=== PATIENT | male | born 1965 | race Caucasian/White ===

== ENCOUNTER 2019-07-18 08:01 | Day surgery (SDC) | payer OTHER ==
[~2019-07-18] VITALS: Ht 175.3 cm; Wt 115.4 kg
[~2019-07-18 08:01] MED LIST: ALBU90OI INH; ALBU90OI6 INH; ALBU90OI61 INH; HYDACE10B PO; Prednisone20 MG PO; SULTRIDS PO; Ventolin Soln3 ML INH
[2019-07-18] MEDS ORDERED: OSTERA TABLET1 EACH (08:23)
[2019-07-18] MEDS ORDERED: LISI5 (08:23)
== END 2019-07-18 10:18 | disposition home or self-care (01) ==
LOC: ORSCSDS 08:01
DX: Z12.11 Encounter for screening for malignant neoplasm of colon (principal); D12.2 Benign neoplasm of ascending colon; D12.3 Benign neoplasm of transverse colon; K64.8 Other hemorrhoids; E78.5 Hyperlipidemia, unspecified; K21.9 Gastro-esophageal reflux disease without esophagitis; J45.909 Unspecified asthma, uncomplicated; F31.9 Bipolar disorder, unspecified
CPT/HCPCS: 88305; J2405; J2704; J7120

== ENCOUNTER 2024-11-12 15:31 | Emergency (ER) | payer OTHER ==
[~2024-11-12] VITALS: Ht 175.3 cm; Wt 108.9 kg
[~2024-11-12 15:31] MED LIST changes: +LISI5; +OSTERA TABLET1 EACH
[2024-11-12 16:24] LABS: BASOPHILS ABSOLUTE AUTO 0.08 K/mm3 (0.00-0.23); BASOPHILS PERCENT AUTO 1 % (0-2); EOSINOPHILS ABSOLUTE AUTO 0.33 K/mm3 (0.00-0.68); EOSINOPHILS PERCENT AUTO 4 % (0-6); Hematocrit 51.1 % (37.0-53.0); Hemoglobin 17.5 g/dL (13.5-17.5); IMMATURE GRAN ABSOLUTE AUTO 0.02 K/mm3 (0.00-0.10); IMMATURE GRAN PERCENT AUTO 0 % (0-1); LYMPHOCYTES ABSOLUTE AUTO 1.54 K/mm3 (0.84-5.20); LYMPHOCYTES PERCENT AUTO 19 % (21-46); MONOCYTES ABSOLUTE AUTO 0.77 K/mm3 (0.16-1.47); MONOCYTES PERCENT AUTO 10 % (4-13); Mean Corpuscular HGB 30.9 pg (26.0-34.0); Mean Corpuscular HGB Conc 34.2 g/dL (31.5-36.5); Mean Corpuscular Volume 90 fL (80-100); Mean Platelet Volume 8.9 fL (9.1-12.4); NEUTROPHILS ABSOLUTE AUTO 5.34 K/mm3 (1.96-9.15); NEUTROPHILS PERCENT AUTO 66 % (41-73); Platelet Count 261 K/mm3 (150-400); RDW Standard Deviation 42.6 fL (35.1-46.3); Red Blood Cell Count 5.66 M/mm3 (4.30-5.90); White Blood Cell Count 8.08 K/mm3 (4.00-11.30)
[2024-11-12 16:43] LABS: Albumin, Blood 3.5 g/dL (3.4-5.0); Albumin/Globulin Ratio 0.9 (0.8-1.8); Bilirubin, Total 0.8 mg/dL (0.1-1.0); Bun/Creatinine Ratio 10.9 (12.0-20.0); Calcium, Blood 9.4 mg/dL (8.5-10.1); Creatinine, Blood 1.19 mg/dL (0.60-1.20); Globulin, Blood 3.9 g/dL (2.2-4.0); Potassium, Blood 4.1 mmol/L (3.5-5.5); Total Protein, Blood 7.4 g/dL (6.4-8.2)
[2024-11-12] MEDS ORDERED: CEPH500 PO (17:19)
[2024-11-12] MEDS ORDERED: CeFAZolin Sodium 2,000 MG in NS 100 ML IV ONE (17:20)
[2024-11-12 18:15] VITALS: BP 170/110
== END 2024-11-12 18:25 | disposition home or self-care (01) ==
LOC: ER 15:31
PROVIDERS: Student in an Organized Health Care Education/Training Program
DX: K42.9 Umbilical hernia without obstruction or gangrene (principal); J45.909 Unspecified asthma, uncomplicated; I10 Essential (primary) hypertension; Z79.899 Other long term (current) drug therapy
CPT/HCPCS: 74177; 80053; 85025; 96365-59; 99283-25; J0690; Q9967

== ENCOUNTER 2024-11-15 10:16 | Inpatient (IN) | payer OTHER ==
[2024-11-15] VITALS (9 sets, daily range): BP systolic 135–157; BP diastolic 89–112
[~2024-11-15] VITALS: Ht 172.7 cm; Wt 111.0 kg
[~2024-11-15 10:16] MED LIST changes: +CEPH500 PO; +CeFAZolin Sodium 2,000 MG in NS 100 ML IV SCH; +Lactated Ringer's 1,000 ML IV SCH
--- NOTE | 2024-11-15 11:38 | NUR ---
Ambulatory in Day Surgery. History, Chart, Medications and Allergies reviewed before start of procedure. Lungs clear T/O to Auscultation. PT REPORTS CHEWING TOBACCO AROUND 0930 THIS AM. ANESTHESIA NOTIFIED AND PER ANESTHESIA, DARNELL QUISPE TO PROCEED. PT REPORTS NOTHING ELSE BY MOUTH PRIOR TO PROCEDURE. Pre-Op teaching done. Pt verbalizes understanding. Patient States Post-Procedure ride home has been arranged. PT BELONGINGS PLACED [facility]ATH [facility] FOR SAFEKEEPING.
[2024-11-15] MEDS ORDERED: Metoclopramide HCl 5MG / ML 2ML Vial IV ONE (12:00)
[2024-11-15] MEDS ORDERED: Citric Acid/Sodium Citrate 30 ML BTL PO ONE (12:00)
[2024-11-15] MEDS ORDERED: Bupivacaine 0.5% HCl 5 MG/ML 30MLVIAL ONE (12:29)
[2024-11-15] MEDS ORDERED: Rocuronium Bromide 10 MG/ML 5ML Injection IV ONE (12:40)
[2024-11-15] MEDS ORDERED: FentaNYL Citrate 50 MCG/ML 2 ML Injection ONE (12:40)
[2024-11-15] MEDS ORDERED: propofoL 20 ML IV ONE (12:40)
[2024-11-15] MEDS ORDERED: Midazolam HCl 1MG / ML 2ML Vial ONE (12:40)
[2024-11-15] MEDS ORDERED: ePHEDrine Sulfate 50 MG/ML 1ML Injection ONE (13:22)
[2024-11-15] MEDS ORDERED: Vasopressin 20 UNITS/ML 1ML Vial ONE (13:31)
[2024-11-15] MEDS ORDERED: Dexamethasone Sod Phos 10 MG/ML 1ML VIAL ONE (14:08)
[2024-11-15] MEDS ORDERED: Ondansetron HCl 2 MG / ML 2ML Vial ONE (14:08)
[2024-11-15] MEDS ORDERED: Ketorolac Tromethamine 30mg Vial ONE (14:30)
[2024-11-15] MEDS ORDERED: Sugammadex Sodium 200 MG/2ML SDV (100 MG/ML) ONE (14:36)
[2024-11-15] MEDS ORDERED: HYDROmorphone HCl/Pf 1MG SYR ONE (14:38)
[2024-11-15] MEDS ORDERED: FentaNYL Citrate 50 MCG/ML 2 ML Injection IV PRN ×2 (14:45)
[2024-11-15] MEDS ORDERED: Albuterol 2.5 MG/3 ML VIAL INH PRN (14:45)
[2024-11-15] MEDS ORDERED: HydrALAZINE HCl 20 MG / ML 1ML Vial IV PRN (14:45)
[2024-11-15] MEDS ORDERED: Ondansetron HCl 2 MG / ML 2ML Vial IV PRN (14:50)
[2024-11-15] MEDS ORDERED: HYDROmorphone HCl/Pf 1MG SYR IV PRN ×2 (14:50)
[2024-11-15] MEDS ORDERED: OxyCODONE 5 mg/Acetamin 325 mg TABLET PO PRN (15:35)
[2024-11-15] MEDS ORDERED: Lactated Ringer's 1,000 ML IV SCH (15:40)
--- NOTE | 2024-11-15 17:14 | NUR ---
Discharge instructions reviewed with patient. Patient verbalizes understanding. Copy given to patient to take home. Discharged via wheelchair to private car for ride home. Ice pack provided.
[2024-11-16] MEDS ORDERED: Enoxaparin 40 MG/0.4 ML SYR SC SCH (09:00)
== END 2024-11-15 17:14 | disposition home or self-care (01) | DRG 355 ==
LOC: ORSCMMR 10:16 → ORD 10:16 → SURS 15:36
PROVIDERS: ADMIT Surgery
PROC: 0DBU4ZZ Excision of Omentum, Percutaneous Endoscopic Approach (ICD-10-PCS; 2024-11-15)
PROC: 0WBF0ZZ Excision of Abdominal Wall, Open Approach (ICD-10-PCS; 2024-11-15)
PROC: 0HX7XZZ Transfer Abdomen Skin, External Approach (ICD-10-PCS; 2024-11-15)
PROC: 8E0W4CZ Robotic Assisted Procedure of Trunk Region, Percutaneous Endoscopic Approach (ICD-10-PCS; 2024-11-15)
PROC: 0WUF4JZ Supplement Abdominal Wall with Synthetic Substitute, Percutaneous Endoscopic Approach (ICD-10-PCS; principal; 2024-11-15 12:00)
DX: K42.1 Umbilical hernia with gangrene (principal); K43.6 Other and unspecified ventral hernia with obstruction, without gangrene; M62.08 Separation of muscle (nontraumatic), other site; E65 Localized adiposity; J45.909 Unspecified asthma, uncomplicated; I10 Essential (primary) hypertension; E66.812 Obesity, class 2; K21.00 Gastro-esophageal reflux disease with esophagitis, without bleeding; E78.5 Hyperlipidemia, unspecified; G47.33 Obstructive sleep apnea (adult) (pediatric); Z68.37 Body mass index [BMI] 37.0-37.9, adult; Z85.820 Personal history of malignant melanoma of skin; Z88.8 Allergy status to other drugs, medicaments and biological substances
CPT/HCPCS: A9270; J0690; J1100; J1171; J1885; J2250; J2405; J2704; J2765; J3010; J7120